=== PATIENT | male | born 1965 | race Two or more races ===

== ENCOUNTER 2017-06-21 18:34 | Emergency (ER) | payer OTHER ==
[~2017-06-21] VITALS: Ht 165.1 cm; Wt 79.8 kg
[2017-06-21] MEDS ORDERED: ROBAXIN-750750 MG PO (19:05)
[2017-06-21] MEDS ORDERED: IBUPROFEN600 MG ORAL (19:05)
[2017-06-21 19:35] VITALS: BP 128/84
--- NOTE | 2017-06-21 21:28 | Emergency Room Report ---
History of Present Illness General Chief Complaint: Upper Extremity Injury Source: Patient Present Illness HPI The patient is a 51-year-old male presenting for right shoulder pain. He states that he was at work 3 days ago, and lifted a heavy object, and felt pain in his right shoulder. Pain has persisted and is now a 6/10 dull ache. Worse with movement. He denies previous injury to this area. He denies any radiating pain or other symptoms including numbness or tingling Allergies: Coded Allergies: No Known Allergies (Unverified , 06/21/17) Patient History Past Medical History: see triage record Pertinent Family History: none Reviewed Nursing Documentation: PMH: Agreed, PSxH: Agreed Review of Systems All Other Systems: negative except mentioned in HPI Physical Exam Vital Signs Date Time Temp Pulse Resp B/P (MAP) Pulse Ox O2 Delivery O2 Flow Rate FiO2 06/21/17 18:44 97.9 73 19 128/84 96 Room Air Sp02 EP Interpretation: reviewed, normal General Appearance: no apparent distress, alert, GCS 15, non-toxic Head: normocephalic, atraumatic Eyes: bilateral eye normal inspection, bilateral eye PERRL ENT: hearing grossly normal, normal pharynx, no angioedema, normal voice Neck: full range of motion, supple/symm/no masses Respiratory: chest non-tender, lungs clear, normal breath sounds, speaking full sentences Musculoskeletal: normal inspection, normal range of motion, tender - R lateral and posterior deltoids Neurologic: alert, oriented x3, responsive, motor strength/tone normal, sensory intact, speech normal Psychiatric: judgement/insight normal, memory normal, mood/affect normal, no suicidal/homicidal ideation Skin: normal color, no rash, warm/dry, well hydrated Medical Decision Making PA Attestation Dr. Stephens is my supervising physician. Patient management was discussed with my supervising physician Diagnostic Impression: Primary Impression: Strain of shoulder, right Qualified Codes: S46.911A - Strain of unspecified muscle, fascia and tendon at shoulder and upper arm level, right arm, initial encounter ER Course The patient is a 51-year-old male presenting for right shoulder pain Ddx considered include but not limited to sprain/strain, fracture, contusion PE: NAD There is tenderness to palpation over the right lateral and posterior deltoids. Full active range of motion is intact. No deformity Strength 5/5 No imaging is needed at this time. Patient will be discharged home with prescription for Motrin and robaxin. He will follow up with workers compensation Last Vital Signs Date Time Temp Pulse Resp B/P (MAP) Pulse Ox O2 Delivery O2 Flow Rate FiO2 06/21/17 19:35 73 19 128/70 96 Room Air 06/21/17 19:35 97.9 Status: improved Disposition: HOME, SELF-CARE Condition: Improved Scripts Methocarbamol* (ROBAXIN-750*) 750 Mg Tablet 750 MG PO TID, #21 TAB 0 Refills Prov: AMADA LIRA P.A. 06/21/17 Ibuprofen* (MOTRIN*) 600 Mg Tablet 600 MG ORAL Q8H Y for For Pain, #30 TAB 0 Refills Prov: AMADA LIRA P.A. 06/21/17 Referrals: NOT CHOSEN [facility]/,REFERRING (PCP) Patient Instructions: Muscle Strain Additional Instructions: I discussed my findings with the patient. All questions and concerns have been answered. Treatment and medication compliance have been addressed. I advised the patient that they need to follow up with PMD in 3-5 days. Return to ED if pain remains or worsens, numbness or tingling occurs, new rash is noticed, fever is noticed, or if needed for any reason. Patient verbalized understanding of discharge instructions. AMADA LIRA Jun 21, 2017 21:28
== END 2017-06-21 19:35 | disposition home or self-care (01) ==
LOC: EMR 19:27
DX: S46.911A Strain of unspecified muscle, fascia and tendon at shoulder and upper arm level, right arm, initial encounter (principal); X50.0XXA Overexertion from strenuous movement or load, initial encounter; Y92.511 Restaurant or cafe as the place of occurrence of the external cause; Y99.0 Civilian activity done for income or pay
CPT/HCPCS: 99283